=== PATIENT | female | born 1970 | race Caucasian/White ===

== ENCOUNTER 2021-09-22 01:51 | Day surgery (SDC) | payer BC, SELFPAY ==
[2021-09-16 09:19] VITALS: BMI 34.9
--- NOTE | 2021-09-16 09:32 | PC.NURSE ---
Report to the Outpatient Waiting Room, entrance under the green pavilion located off [facility], at time 0830 on date 09/22/21. OR Time: 1030. - You and your visitor will be asked a series of questions to screen for COVID 19 for your protection. - A mask is required within the hospital. - Only one visitor is allowed at this time. Patient visitors will be guided where to wait when not with patient. Preoperative COVID Testing Requirements: No COVID Test needed if: (proof is required; if not received patient will have Rapid Test prior to entry) - Patient has received COVID Vaccine at least 14 days prior to procedure date or - Patient has positive COVID test result within last 90 days of surgery date. COVID Test needed if above criteria is not met If not COVID vaccinated a COVID test must be conducted within 72 hours of surgery and patient is asked to isolate self from time of testing until procedure. You will go to the [facility] for your COVID testing. The [facility] Testing site is located at the corner of [address] [facility]. HAVING PCR TEST DONE IN [place] ON 09/18 - WILL EITHER FAX OR EMAIL RESULTS You will only be called if COVID results are positive and your surgeon may reschedule your elective surgery date. Patients may have clear liquids (water, carbonated beverages, clear teas, apple juice) until 3 hours prior to surgery with a maximum of 20 ounces. - No food from midnight until time of surgery - Infants may have breast milk until 4 hours before surgery, formula 6 hours prior to surgery. - Children will be allowed to drink immediately following surgery. If applicable, please bring a bottle or sippy cup to assist with drinking. Juice, water, soda, and popsicles are readily available. For infants on formula, please bring formula the day of surgery. Pacifiers are allowed. Take the following medications with a SIP of water the morning of surgery: CARVEDILOL, LEVOTHYROXINE Medications to discontinue per physician: VITAMINS/SUPPLEMENTS Date to take last dose: 09/18/21 LAST DOSE OF ASPIRIN 09/16 (PER DR. JOHNSON'S ORDERS) Please no make-up, nail chinese, hairspray, perfume, deodorant, or body powder the day of surgery. No jewelry (including any body piercings) or valuables the day of surgery, leave them at home. Please take a shower or bath the night before, or the morning of, surgery with an antibacterial soap. Wear comfortable, loose fitting clothing. Children are encouraged to wear pajamas. - Jewelry must be removed prior to entering the operating room. Rings and piercings that are not removed may be cut off. - The hospital will not accept responsibility for valuables. - Please leave all valuables, including medications, at home the day of surgery. If you are going home after surgery, a licensed wagon driver must drive you home. - NO public transportation without another adult. - We recommend that an adult stay with you for 24 hours following discharge. - We also recommend that you do not drive, make important decision, drink alcoholic beverages, or take any drugs that were not prescribed by your health care provider for at least 24 hours after your discharge time. For Pediatric surgeries, we recommend two adults accompany the child home (only one inside the building at this time). Follow any additional instructions given to you from your surgeon. Telephone instructions given to JERAD FISHER and asked if any additional questions and then verbalized understanding. Patient advised to call surgeon office or pre surgery nurse liaison [phone] if any additional questions.
--- NOTE | 2021-09-17 13:18 | PM.IMHP ---
H&P: HPI History of Present Illness Date/Time: 09/17/21 13:18 The patient is a 50-year-old female who sees Dr. Bobby regarding her right knee. The patient has a chronic ongoing history of pain localized to the right knee particularly medially. The patient has mechanical symptoms aching pain worse with activities and relieved by rest. She can not squat kneel twist or turn the knee she reports mechanical symptoms swelling and aching that limits her daily activities. The patient failed conservative measures she underwent an MRI scan which shows a complex tear of the posterior horn and body of the medial meniscus, a portion of the body posterior horn junction appears to be flipped posteriorly. The lateral meniscus is intact. There is partial-thickness fissuring in all 3 compartments of the cartilage. There is a contusion of the posterior lateral tibial plateau but no evidence of fracture. It appears the stabilizing ligaments of the knee are intact. At this point the patient is where the above finding she knows she has some pre-existing osteoarthritis and may not get full relief for knee pain from knee arthroscopy however she would like to proceed after discussing treatment options in detail with Dr. Bobby. Chief Complaint: Right knee pain due to a mediial meniscal tear Review of Systems Review of Systems: All systems reviewed & are unremarkable except as noted in HPI and below PMFSH Past Medical History Medical History Acute sinusitis Essential hypertension Goiter Hyperlipidemia Intermittent palpitations Prediabetes Family History Family History Father Hypertension Mother Hypertension Social History Social History Social History: Quit smoking cigarettes 1995 Years smoked: 10 Smoking status: Former smoker Smoking end date: 10/16/95 Alcohol intake: never Substance use: never Substance use type: does not use Living arrangements: with family Spiritual care concerns: No Meds Home Medications and Allergies Home Medications Medication Instructions Recorded Confirmed Type aspirin 81 mg tablet,delayed 81 mg PO DAILY 08/23/21 09/16/21 History release carvedilol 3.125 mg tablet 3.125 mg PO Q12H 08/23/21 09/16/21 History fluticasone propionate 50 1 spray INTRANASAL DAILY 08/23/21 09/16/21 History mcg/actuation nasal spray,suspension levothyroxine 100 mcg capsule 112 mcg PO DAILY 08/23/21 09/16/21 History losartan 50 mg tablet 75 mg PO DAILY tablet 08/23/21 09/16/21 History nitroglycerin 0.4 mg sublingual 0.4 mg SUBLINGUAL Q5M PRN 08/23/21 09/16/21 History tablet loratadine [Claritin] 10 mg PO DAILY 09/16/21 09/16/21 History multivitamin 1 tablet PO DAILY 09/16/21 09/16/21 History mv,Ca,mbr-QN-vyglqx no.157 1 tablet PO DAILY 09/16/21 09/16/21 History [Menopause Supplement] Allergies Allergy/AdvReac Type Severity Reaction Status Date / Time lisinopril AdvReac Cough Verified 09/16/21 09:15 metoprolol AdvReac Swelling Verified 09/16/21 09:15 Exam Narrative: The patient is noted be a well-developed well-nourished female no acute distress alert oriented x3. Normal mood and affect. She is noted to be intact. Respiratory is good no distress. Pulse regular rate rhythm. Abdomen benign. Extremities showed the patient's right knee to be painful with manipulation and range of motion. The patient has tenderness on the medial joint line with a positive Tessa exam negative Alexandra knee joint is otherwise stable strength is 5 5. She has mild crepitation through the arc motion pain extremes of motion. Mild knee joint effusion is noted. Neurovascularly she is intact hips move well with negative Stinchfield negative AMY. Strength is 5 5. Skin is intact. Central nervous system exam within normal limits. Assessment and P
[2021-09-22] VITALS (9 sets, daily range): BP systolic 116–144; BP diastolic 60–71; PULSE 68–85; RESP 13–20; TEMP 36.5–36.9; O2SAT 96–100
--- NOTE | 2021-09-22 06:06 | ECG_ITS ---
Measurements Intervals [place] Rate: 75 P: 39 MO: 164 QRS: 7 QRSD: 88 T: 29 QT: 364 QTc: 406 Interpretive Statements SINUS RHYTHM NORMAL ECG Electronically Signed On 09-22-2021 9:10:13 MAJOR ACCOUNT REPRESENTATIVE by Yaron Gonzalez D.O.
--- NOTE | 2021-09-22 07:20 | WPDHPUPDATE1 ---
History and Physical Update Update Date/Time: 09/22/21 07:20 History and Physical has been reviewed, including an updated exam of the patient. There are NO changes in the patient's condition. Risks, benefits, and alternatives have been discussed and questions answered. Patient agrees to proceed with procedure.
[2021-09-22] MEDS: ACETAMINOPHEN 500 MG TABLET 1000 MG PO (08:41)
[2021-09-22] MEDS: LACTATED RINGERS 1,000 ML 30 ML IV CONT ×2 (09:15→12:54)
[2021-09-22] MEDS: KETOROLAC 15 MG/ML VIAL (*BKC) IV PUSH (09:18)
--- NOTE | 2021-09-22 09:41 | WPDANESEPPF ---
Anes - Initial Pre Proc Eval Procedure: Operation Date: 09/22/21 10:30 Proposed Procedures p Right Knee Arthroscopy Partial Medial Meniscectomy, Proceed As Indicated - Neri Bobby MD Date/Time: 09/22/21 09:41 Surgeon: Neri Bobby MD Pre Op Diagnosis: Medial Meniscus Tear Right Knee Patient Data Age: 50 Gender: F Height: 1.61 m Weight: 95.8 kg Last Vital Signs Temp 36.5 C 09/22/21 08:29 Pulse 81 09/22/21 08:29 Resp 20 09/22/21 08:29 BP 144/60 H 09/22/21 08:29 Pulse Ox 99 09/22/21 08:29 Allergies Allergy/AdvReac Type Severity Reaction Status Date / Time lisinopril AdvReac Mild Cough Verified 09/22/21 08:32 metoprolol AdvReac Mild Swelling Verified 09/22/21 08:32 Home Medications Medication Instructions Recorded Confirmed Type aspirin 81 mg tablet,delayed 81 mg PO DAILY 08/23/21 09/22/21 History release carvedilol 3.125 mg tablet 3.125 mg PO Q12H 08/23/21 09/22/21 History fluticasone propionate 50 1 spray INTRANASAL DAILY 08/23/21 09/22/21 History mcg/actuation nasal spray,suspension levothyroxine 100 mcg capsule 112 mcg PO DAILY 08/23/21 09/22/21 History losartan 50 mg tablet 75 mg PO DAILY tablet 08/23/21 09/22/21 History nitroglycerin 0.4 mg sublingual 0.4 mg SUBLINGUAL Q5M PRN 08/23/21 09/22/21 History tablet loratadine [Claritin] 10 mg PO DAILY 09/16/21 09/22/21 History multivitamin 1 tablet PO DAILY 09/16/21 09/22/21 History mv,Ca,grv-VB-avhill no.157 1 tablet PO DAILY 09/16/21 09/22/21 History [Menopause Supplement] Patient hx anesthesia problems: none Family hx anesthesia problems: none Results Review: All pre-operative results and documents have been reviewed as part of the pre-operative evaluation. [facility] Past Medical History Medical History Acute sinusitis Essential hypertension Goiter Hyperlipidemia Intermittent palpitations Prediabetes Family History Family History Father Hypertension Mother Hypertension Social History Social History Social History: Quit smoking cigarettes 1995 Years smoked: 10 Smoking status: Former smoker Smoking end date: 10/16/95 Alcohol intake: never Substance use: never Substance use type: does not use Living arrangements: with family Spiritual care concerns: No Anes - Eval Final PreProcedure Day of Procedure 09/22/21 09:41 Patient weight: obese Heart: regular rate and rhythm Lungs: clear to auscultation Airway: Mallampati scale class 1 Neurological: alert and oriented Last oral intake: >/= 8 hours ASA classification: III Emergent: no Anesthetic plan: proceed Anesthesia type and monitoring: general LMA and standard monitoring Results Review: All pre-operative results and documents have been reviewed as part of the pre-operative evaluation. Informed Consent: The patient's anesthetic plan and its attendant risks and benefits were discussed with the patient/family/POA. Questions were solicited and answers provided to the satisfaction of the patient/family/POA.
[2021-09-22] MEDS: ceFAZolin 2 GM/D5W 50 ML 2 GM/50 ML BAG IVPB (10:17)
[2021-09-22] MEDS: LIDO 1%/EPINEPHRINE 1:100,000 50 ML VIAL 20 ML INFILTRATE (10:30)
--- NOTE | 2021-09-22 10:51 | W.PM.PROC2 ---
Procedure Note - Detailed Date of Procedure 09/22/21 Pre-op Diagnosis Medial Meniscus Tear Right Knee Post-op Diagnosis same Procedure Performed [right] knee arthroscopy with partial meniscetomy Surgeon Neri Bobby MD Anesthesia general Description of Procedure Patient brought to the operating room and anesthetic was administered. The knee was steriley prepped and drapped in the usual manner. Standard portals were used. Superior medial portal was used for the outflow cannula, inferior lateral portal was used for the scope, inferior medial portal was used for the instruments. Arthroscopy was performed, the patellar femoral joint degenerative changes. The medial compartment showed a complex tear. The lateral compartment showed fraying. The ACL was intact. Using baskets and zahra the meniscal tear was trimmed back to a stable base so the nothing further could be pulled into the joint. Any loose or delaminated fragments were gently trimmed to a stable base. At this point the instruments were withdrawn, sutures placed and patient left the operating room in satisfactory condition. Estimated Blood Loss 20 Drains No Packing No Pathology none sent Complications No immediate complications Condition stable Disposition PACU
[2021-09-22] MEDS: ONDANSETRON INJ 4 MG/2 ML VIAL IV PUSH (11:36)
[2021-09-22] MEDS: fentaNYL CITRATE INJ (*CRX) 100 MCG/2 ML VIAL 25 MCG IV PUSH (11:38)
[2021-09-22] MEDS: diphenhydrAMINE HCl INJ 50 MG/ML VIAL 25 MG IV PUSH (12:25)
[2021-09-22] MEDS: SCOPOLAMINE 1.5 MG PATCH TRANSDERM (12:25)
[2021-09-22] MEDS: oxyCODONE HCL (*CRX) 5 MG TAB IR PO (12:42)
== END 2021-09-22 13:48 | disposition home or self-care (01) ==
PROVIDERS: Visit Provider Orthopaedic Surgery
PROC: (CPT 29870; principal; 2021-09-22 10:30)
DX: M23.331 Other meniscus derangements, other medial meniscus, right knee (principal); M17.11 Unilateral primary osteoarthritis, right knee; I10 Essential (primary) hypertension; E78.5 Hyperlipidemia, unspecified; R73.03 Prediabetes; Z87.891 Personal history of nicotine dependence; E66.9 Obesity, unspecified; Z68.36 Body mass index [BMI] 36.0-36.9, adult; Z79.82 Long term (current) use of aspirin
CPT/HCPCS: 29881; 93005; A9270; J0330; J0690; J1200; J1885; J2250; J2405; J2704; J3010; J7120

== ENCOUNTER 2021-12-14 07:27 | Outpatient (CLI) | payer BC, SELFPAY ==
--- NOTE | 2021-12-15 14:28 | WPDHOMESLEEP ---
Sleep Study - Home Unattended Date of Study: 12/14/21 Ordering Provider: Tuan Wayne APRN Interpreting Provider: Ivy Barry MD Home Sleep Study Type: Apnea Link Air Height: 1.6 m Weight: 92.986 kg Body Mass Index: 36.3 Neck Circumference (inches): 16 [place]: 12 Reason for Sleep Study Hypersomnolence Sleep History Ivy Tatum is a 51 year old female with loud snoring which started about 5 years ago. She has extreme fatigue, and she wakes often throughout the night. There is a positive family history of sleep issues with her father having sleep apnea. She does not awaken from sleep feeling short of breath. She occasionally awakens at night with heartburn, belching or coughing. She frequently snores and frequently is loud enough that others complain. She rarely has trouble sleeping with a cold. She does not wake up gasping for breath at night or have breathing problems reported to her by others. She occasionally sweats excessively at night. She rarely notices her heart pounding or beating irregularly at night. She rarely falls asleep during the day, never falls asleep involuntarily and never falls asleep while driving. She does not have loss of muscle tone with strong emotion. She rarely has daytime problems due to excessive sleepiness. She does not feel paralyzed on waking or falling asleep. She occasionally has vivid dreamlike scenes upon awakening or falling asleep. She does not feel afraid to go to sleep. She occasionally has nightmares, occasionally remembers her dreams. She occasionally has racing thoughts. She rarely feels sad, depressed or anxious. She occasionally has muscular tension and occasionally notices parts of her body jerking. She rarely kicks at night, rarely has crawling and aching feelings in her legs and rarely has any kind of leg pain at night. She does not have morning jaw pain. She does not grind her teeth during sleep. She occasionally is bothered by pain during the day. She rarely is awakened by pain at night. She constantly wakes up feeling stiff in the morning, rarely wakes up with sore achy muscles occasionally wakes up with pain in the neck and spine. She has fatigue, memory problems, depression, and palpitations. She has nasal allergies and heartburn. She also has thyroid problems. Normal bedtime is Between 10:00 p.m. and 11:00 p.m. taking 30 minutes fall asleep typically waking 3-5 times at night to use the bathroom or roll over and reposition. It takes her 10-15 minutes to return to sleep. She wakes in the morning between 5:00 a.m. and 7:00 a.m.. On the weekends, she goes to bed later 12 midnight to 2:00 a.m. and wakes up by 8:00 a.m.. She estimates getting between 6 and 8 hours of sleep at night. She generally does not take naps. A short nap is not refreshing. She feels better in the morning compared to other times of day. Habits: Quit tobacco 26 years ago. Caffeine 3 cups in the morning. No alcohol or recreational drugs. [facility] Past Medical History Medical History Acute sinusitis Essential hypertension Goiter Hyperlipidemia Intermittent palpitations Prediabetes Family History Family History Father Hypertension Mother Hypertension Social History Social History Social History: Quit smoking cigarettes 1995 Years smoked: 10 Smoking status: Former smoker Smoking end date: 10/16/95 Alcohol intake: never Substance use: never Substance use type: does not use Spiritual care concerns: No Medications Home Medications Medication Instructions Recorded Confirmed Type aspirin 81 mg tablet,delayed 81 mg PO DAILY 08/23/21 09/22/21 History release carvedilol 3.125 mg tablet 3.125 mg PO Q12H 08/23/21 09/22/21 History fluticasone propionate 50 1 spray INTRANASAL DAILY 11
[2021-12-15 14:30] VITALS: BMI 36.3
== END 2021-12-15 11:48 | disposition home or self-care (01) ==
PROVIDERS: Visit Provider Nurse Practitioner Family
DX: R06.83 Snoring (principal); G47.10 Hypersomnia, unspecified; G47.30 Sleep apnea, unspecified
CPT/HCPCS: 95806